=== PATIENT | female | born 1985 | race Caucasian/White ===

== ENCOUNTER → 2023-05-11 | Outpatient (CLI) | payer OTHER ==
--- NOTE | 2023-05-11 08:03 | US ---
EXAMINATION TYPE: US pelvis complete transvag DATE OF EXAM: 05/11/2023 COMPARISON: NONE CLINICAL INDICATION: Female, 37 years old with history of N94.3 DYSMENORRHEA; 6 months of increased c ramping, nausea and heavier cycles, , tubal ligation, h/o IUD that has been removed TECHNIQUE: TA/TV. Transabdominal sonographic images of the pelvis were acquired. Transvaginal sono graphic images were medically necessary to better assess the following anatomy: endometrium Date of LMP: 05-07-2023 EXAM MEASUREMENTS: Uterus: 7.4 x 4.7 x 3.4 cm Endometrial Stripe: 0.6 cm Right Ovary: 3.1 x 2.1 x 2.1 cm Left Ovary: 2.6 x 2.1 x 2.4 cm 1. Uterus: Anteverted wnl 2. Endometrium: 1.3cm possible polyp seen, unable to visualize vascular stalk 3. Right Ovary: wnl 4. Left Ovary: 1.2 x 0.7 x 0.7cm follicle seen 5. Bilateral Adnexa: wnl 6. Posterior cul-de-sac: wnl IMPRESSION: 1. Endometrial polyp measuring up to 1.2 cm. 2. No evidence for acute process.
== END | disposition home or self-care (01) ==
LOC: RADUSWWP 06:44
PROVIDERS: ATTEND Family Medicine
DX: N84.0 Polyp of corpus uteri (principal); N94.6 Dysmenorrhea, unspecified; N94.3 Premenstrual tension syndrome; R11.0 Nausea; Z98.51 Tubal ligation status
CPT/HCPCS: 76830; 76856

== ENCOUNTER → 2023-06-17 | Outpatient (CLI) | payer OTHER ==
[2023-06-17 15:04] LABS: Basophils # (A) 0.04 X 10*3/uL (0.00-0.10); Basophils % (A) 0.7 %; Eosinophils # (A) 0.05 X 10*3/uL (0.04-0.35); Eosinophils % (A) 0.9 %; HCT 40.7 % (37.2-46.3); HGB 13.4 g/dL (12.0-15.0); Lymphocytes # (A) 1.97 X 10*3/uL (0.90-5.00); Lymphocytes % (A) 35.4 %; MCH 30.5 pg (27.0-32.0); MCHC 32.9 g/dL (32.0-37.0); MCV 92.7 FL (80.0-97.0); Mean Platelet Volume 12.1 FL (9.5-12.2); Monocytes % (A) 7.2 %; NRBC Per 100 WBC 0 X 10*3/uL (0.00-0.01); Neutrophils % (A) 55.6 %; Platelet Count 258 X 10*3/uL (140-440); RBC 4.39 X 10*6/uL (4.10-5.20); RDW 12.7 % (11.5-14.5); WBC 5.57 X 10*3/uL (4.50-10.00)
== END | disposition home or self-care (01) ==
LOC: LABWHC1 11:53
PROVIDERS: ATTEND Obstetrics & Gynecology Obstetrics
DX: Z01.812 Encounter for preprocedural laboratory examination (principal); N92.0 Excessive and frequent menstruation with regular cycle
CPT/HCPCS: 36415; 85025

== ENCOUNTER 2023-07-03 06:45 | Day surgery (SDC) | payer OTHER ==
[~2023-07-03 06:45] MED LIST: Pre Op ABX Message 1 EACH MISC MISCELLANE ONE
[2023-07-03] MEDS ORDERED: HYDROmorphone 0.5 MG/0.5 ML SYRINGE IVP PRN (07:00)
[2023-07-03] MEDS: LACTATED RINGERS 1,000 ML IV SCH (07:35)
[2023-07-03] MEDS: DEXAMETHASONE SOD PHOSPHATE 4 MG/ML 1 ML VIAL IV ONE (07:41)
[2023-07-03] MEDS: ONDANSETRON 4 MG/2 ML VIAL IVP ONE (07:41)
[2023-07-03] MEDS: LIDOCAINE 1%-EPI 1:100,000 20 ML VIAL SUBMUCOSAL ONE (07:43)
[2023-07-03] MEDS: SILVER NITRATE APPLICATOR 1 EACH STICK..EA. TOPICAL ONE (07:43)
[2023-07-03] MEDS ORDERED: GLYCOPYRROLATE 0.2 MG/ML 2 ML VIAL ONE (08:22)
[2023-07-03] MEDS ORDERED: MIDAZOLAM 2 MG/2 ML VIAL ONE (08:22)
[2023-07-03] MEDS ORDERED: PROPOFOL 10 MG/ML 20 ML VIAL IV ONE (08:22)
[2023-07-03] MEDS ORDERED: KETOROLAC 15 MG/ML 1 ML VIAL ONE (08:22)
[2023-07-03] MEDS ORDERED: LIDOCAINE 1% INJ 10MG/ML (20 ML MDV) ONE (08:22)
[2023-07-03] MEDS ORDERED: fentaNYL (PF) 50 MCG/ML 2 ML AMP ONE (08:22)
[2023-07-03 09:57] VITALS: RESP 16; TEMP 97.6
--- NOTE | 2023-07-03 10:12 | P.OP ---
Date of Procedure: 07/03/23 Preoperative Diagnosis: Menorrhagia Postoperative Diagnosis: Same Procedure(s) Performed: Hysteroscopy, dilation and curettage, endometrial ablation Anesthesia: MAC Surgeon: Michelle Solorzano Estimated Blood Loss (ml): 5 IV fluids (ml): 400 Urine output (ml): 100 Pathology: other (Endometrial curettings) Condition: stable Disposition: PACU Indications for Procedure: Heavy menstrual bleeding, failed OCP, IUD, Nexplanon Operative Findings: Normal-appearing cavity, proliferative endometrium appreciated Description of Procedure: Patient is taken back to the operating room where general anesthesia was obtained without difficulty by the anesthesia department. Patient is prepped and draped in the normal sterile fashion in the dorsolithotomy position. A red rubber catheter was used to drain the bladder of clear urine yellow urine. A weighted speculum was placed in the posterior vaginal vault the antilipid the cervix is visualized and grasped with a single-tooth tenaculum. The endocervical canal was then serially dilated. Hysteroscope was placed in the cervix toward endometrial cavity an intact cavity was appreciated with proliferative endometrium. The hysteroscope was removed. A sharp curettage was then performed until gritty texture was noted. The specimen was sent to the pathologist for analysis. The NovaSure was opened and set to the appropriate measurements, cavity of 4, cervix of 3.1, power of 68, time of 75 seconds. Cycle was allowed to be completed after cavity assessment was passed. The NovaSure was then removed without difficulty, the single-tooth tenaculum was taken off of the anterior lip of the cervix hemostasis was noted. All instruments were removed from the vaginal vault. All counts were noted to be correct x 2. Patient tolerated procedure well was taken to the recovery room awake in stable condition.
[2023-07-03 10:43] VITALS: BP 102/67; PULSE 66
== END 2023-07-03 10:20 | disposition home or self-care (01) ==
LOC: OR 06:45
PROVIDERS: ATTEND Obstetrics & Gynecology Obstetrics
DX: N92.0 Excessive and frequent menstruation with regular cycle (principal); F17.210 Nicotine dependence, cigarettes, uncomplicated
CPT/HCPCS: 81025; 88305; 58563; J2250; J1100; J2405; J2001; J3010; J1885; J2704